=== PATIENT | female | born 1930 | race Caucasian/White ===

== ENCOUNTER 2017-09-25 19:29 | Emergency (ER) | payer MEDICARE, BC ==
--- NOTE | 2017-09-25 20:25 | ED ---
Head Injury - HPI Summary HPI Summary: 87F presents with head injury today. She states she fell onto her head. The falls are common for her. no chest pain or SOB. 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 She denies any weakness. She denies any thing different about this fall than her normal falls except she hit her head. She is following up with her primary about the falls. She is not on blood thinners. She denies any pain now. Says right hand was tingling but not anymore. no neck pain. no other injury. no dizziness. - History Of Current Complaint Chief Complaint: EDHeadInjury Stated Complaint: FALL Time Seen by Provider: 09/25/17 19:40 Pain Intensity: 0 - Allergies/Home Medications Allergies/Adverse Reactions: Allergies Allergy/AdvReac Type Severity Reaction Status Date / Time Benzyl Alcohol [From Tazorac] Allergy Unknown Verified 07/03/16 13:58 Reaction Details Fluorouracil Allergy Unknown Verified 07/03/16 13:58 Reaction Details Tazarotene [From Tazorac] Allergy Unknown Verified 07/03/16 13:58 Reaction Details clams Allergy Nausea And Uncoded 07/03/16 13:58 Vomiting PMH/Surg Hx/FS Hx/Imm Hx Endocrine/Hematology History: Reports: Hx Thyroid Disease - hypo Denies: Hx Anticoagulant Therapy Cardiovascular History: Reports: Hx Hypertension - CONTROL WITH MEDS GI History: Reports: Other GI Disorders - OCCASIONAL CONSTIPATION Musculoskeletal History: Reports: Hx Arthritis - BILATERAL LEGS, Hx Bursitis - HX OF IN SHOULDER YEARS AGO, Other Musculoskeletal History - HX OF NECK PROBLEMS , NO PROBLEMS NOW Sensory History: Reports: Hx Contacts or Glasses - GLASSES Denies: Hx Hearing Aid Opthamlomology History: Reports: Hx Contacts or Glasses - GLASSES Neurological History: Reports: Hx Nerve Disease - PERIPHERAL NEUROPATHY Psychiatric History: Reports: Hx Anxiety - CONTROL WITH MED, Hx Depression - CONTROL WITH MED - Cancer History Cancer Type, Location and Year: bilat biopsy breasts (benign) Hx Chemotherapy: No - Surgical History Surgery Procedure, Year, and Place: RIGHT CARPAL TUNNEL RELEASE. RIGHT TRIGGER FINGER RELEASE. REMOVAL BENIGN BILATERAL BREAST LUMPS. MULTIPLE SKIN CANCER EXCISIONS, Hx Anesthesia Reactions: No Infectious Disease History: No Infectious Disease History: Denies: Hx Clostridium Difficile, Hx Hepatitis, Hx Human Immunodeficiency Virus (HIV), Hx of Known/Suspected MRSA, Hx Shingles, Hx Tuberculosis, Hx Known/ Suspected VRE, Hx Known/Suspected VRSA, History Other Infectious Disease, Traveled Outside the [place] in Last 30 Days - Family History Known Family History: Positive: Hypertension - Social History Alcohol Use: None Substance Use Type: Reports: None Smoking Status (MU): Former Smoker Type: Cigarettes Amount Used/How Often: 1-2 PACKS PER WEEK Have You Smoked in the Last Year: No Review of Systems Negative: Fever Negative: Chest Pain Negative: Shortness Of Breath Positive: Headache All Other Systems Reviewed And Are Negative: Yes Physical Exam Triage Information Reviewed: Yes Vital Signs On Initial Exam: Initial Vitals Temp Pulse Resp BP Pulse Ox 97.4 F 83 16 143/72 98 09/25/17 19:35 09/25/17 19:35 09/25/17 19:35 09/25/17 19:35 09/25/17 19:35 Vital Signs Reviewed: Yes Appearance: Positive: Well-Appearing Skin: Positive: Warm, Dry Head/Face: Positive: Normal Head/Face Inspection Eyes: Positive: Normal, EOMI, RIZWANA, Conjunctiva Clear ENT: Positive: Normal ENT inspection, Pharynx normal, TMs normal Neck: Positive: Other: - nontender neck Respiratory/Lung Sounds: Positive: Clear to Auscultation, Breath Sounds Present Cardiovascular: Positive: Normal, RRR Abdomen Description: Positive: Nontender, Soft Bowel Sounds: Positive: Present Musculoskeletal: Positive: Strength/ROM Intact Neurological: Positive: Sensory/Motor Intact, Alert, Oriented to Person Place, Time, CN Intact II-III Psychiatric: Positive: Normal - Thania Coma Scale Coma Scale Total: 15 Diagnostics - Vital Signs Vital Signs Temp Pulse Resp BP Pulse Ox 09/25/17 19:59 86 19 99 09/25/17 19:42 83 16 99 09/25/17 19:35 97.4 F 83 16 143/72 98 - Laboratory Lab Statement: Any lab studies that have been ordered have been reviewed, and results considered in the medical decision making process. - CT brain CT Interpretation: No Acute Changes - IMPRESSION: 1. No evidence for traumatic brain injury or acute intracranial process. 2. Involutional change and stigmata of chronic small vessel ischemic disease. 3. Stigmata of chronic paranasal sinusitis. CT Interpretation Completed By: Radiologist Head Injury Course/Dx Course Of Treatment: 87F presents with head injury today. She states she fell onto her head. The falls are common for her. no chest pain or SOB. 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 She denies any weakness. She denies any thing different about this fall than her normal falls except she hit her head. She is following up with her primary about the falls. She is not on blood thinners. She denies any pain now. Says right hand was tingling but not anymore. no neck pain. no other injury. no dizziness. normal neuro exam. offered to do labs and ekg but patient and son refused as just wants CT. CT normal. ambulates with normal gait. told to follow up with primary. patient unable to give us a urine. patient understand and agrees with plan. - Diagnoses Differential Diagnosis/HQI/PQRI: Concussion Without LOC, Contusion, Intracranial Bleed Provider Diagnoses: Head injury Discharge - Discharge Plan Condition: Good Disposition: HOME Patient Education Materials: Head Injury (ED) Referrals: Mile [Primary Care Provider] - Additional Instructions: Place ice on area as needed Take Tylenol for headache every 6 hours Follow up with primary within 5 days Return to ED if develop vomiting, severe headache, change in behavior, or any new or worsening symptoms
--- NOTE | 2017-09-25 20:47 | RAD ---
Indication: Fall. Comparison: November 04, 2016 CT. Technique: Noncontrast CT vertex of skull through foramen magnum. Report: Mild to moderate prominence of the cerebral sulci and cerebellar fissures reflecting atrophy. Proportional mild prominence of the ventricles. Patent basal cisterns. Negative for gomez matter white matter obscuration, intra or extra-axial hemorrhage, or mass effect. Decreased density in the periventricular and subcortical white matter while non-specific is most likely due to chronic microangiopathy. Negative for calvarial or skull base fracture. Chronic complete opacification of the visualized portion of the LEFT maxillary sinus. Indolent thickening of the maxillary sinus palacio. No suspicious abnormality at the orbits. IMPRESSION: 1. No evidence for traumatic brain injury or acute intracranial process. 2. Involutional change and stigmata of chronic small vessel ischemic disease. 3. Stigmata of chronic paranasal sinusitis.
[2017-09-25 21:49] VITALS: BP 135/75
== END 2017-09-25 21:48 | disposition home or self-care (01) ==
LOC: ED 19:29
DX: S09.90XA Unspecified injury of head, initial encounter (principal); W19.XXXA Unspecified fall, initial encounter; Y93.9 Activity, unspecified; Y92.9 Unspecified place or not applicable; Y99.9 Unspecified external cause status; Z87.891 Personal history of nicotine dependence
CPT/HCPCS: 70450; 99283

== ENCOUNTER 2017-12-08 16:58 | Inpatient (IN) | payer MEDICARE, BC ==
[2017-12-08] MEDS ORDERED: NS 0.9% 1000 ML* 1,000 ML IV ONE (19:38)
--- NOTE | 2017-12-08 20:14 | RAD ---
INDICATION: Dizziness COMPARISON: December 06, 2016 TECHNIQUE: An AP portable view obtained at 2002 hours is submitted. FINDINGS: Bones/Soft Tissues: There are no acute bony findings. Cardiomediastinal: The cardiomediastinal silhouette is normal. Lungs: There are no infiltrates. Pleura: There are no pleural effusions. Other: None IMPRESSION: NO ACTIVE DISEASE.
--- NOTE | 2017-12-08 20:57 | RAD ---
INDICATION: Dizziness COMPARISON: CT brain September 25, 2017 TECHNIQUE: Noncontrast axial source images were acquired from the skull base to the vertex. FINDINGS: Ventricles/sulci: There is cortical atrophy with compensatory dilatation of the CSF spaces. Brain parenchyma: There is periventricular and subcortical white matter change compatible with chronic ischemia. Intracranial hemorrhage:None. Extra-axial spaces: There are no abnormal extra axial fluid collections or evidence of extra-axial mass. Calvarium: There is no calvarial fracture or other calvarial abnormality. Scalp: There is no evidence of scalp or extracalvarial soft tissue abnormality. Paranasal sinuses/mastoid: There is opacification of visualized portions of both maxillary antra. Other: None. IMPRESSION: CORTICAL ATROPHY WITH CHRONIC MICROVASCULAR ISCHEMIC CHANGES. NO ACUTE FINDINGS. SINUSITIS.
[2017-12-08 21:04] LABS: ABS Basophils 0 10^3/ul (0-0.2); ABS Eosinophils 0.1 10^3/ul (0-0.6); ABS Lymphocytes 2.6 10^3/ul (1.0-4.8); ABS Neutrophils 5.5 10^3/ul (1.5-7.7); ABS Nucleated RBC 0 10^3/ul; Eosinophil % 1.5 % (0-6); Hematocrit 39 % (35-47); Hemoglobin 13.1 g/dl (12.0-16.0); Lymphocyte % 28.5 % (25-47); Mean Corpuscular HGB Conc 34 g/dl (31-36); Mean Corpuscular Hemoglobin 31 pg (27-31); Mean Corpuscular Volume 92 fL (80-97); Mean Platelet Volume 8 um3 (7.4-10.4); Nucleated Red Blood Cells % 0.1; Platelet Count 357 10^3/ul (150-450); Red Blood Count 4.23 10^6/ul (4.0-5.4); Red Cell Distribution Width 14 % (10.5-15); White Blood Count 9.3 10^3/ul (3.5-10.8)
[2017-12-08 21:07] LABS: EGFR Non-African American 56.8 (>60)
[2017-12-08 21:30] LABS: INR 0.86 (0.77-1.02)
[2017-12-08 22:58] LABS: Urine Appearance Clear; Urine Blood Negative (Negative); Urine Color Straw; Urine Ketones Negative (Negative); Urine Protein Negative (Negative); Urine Specific Gravity 1.004 (1.010-1.030); Urine Urobilinogen Negative (Negative)
[2017-12-08] MEDS ORDERED: Al Hydrox/Mg Hydrox/Simet LIQ* 30 ML UDC PO PRN (23:00)
[2017-12-08] MEDS ORDERED: Senna TAB PO PRN (23:00)
[2017-12-08] MEDS ORDERED: Ondansetron INJ* 2 MG/ML VIAL IV PRN (23:00)
[2017-12-08] MEDS ORDERED: Acetaminophen TAB* 325 MG PO PRN (23:00)
[2017-12-08] MEDS ORDERED: Docusate CAP* 100 MG PO PRN (23:00)
[2017-12-08] MEDS ORDERED: Magnesium Hydroxide LIQ* 30 ML UDC PO PRN (23:08)
[2017-12-08] MEDS ORDERED: Aspirin TAB* 325 MG PO ONE (23:11)
--- NOTE | 2017-12-09 01:16 | HP ---
CC: Elissa Fuentes MD * HISTORY AND PHYSICAL: DATE OF ADMISSION: 12/08/17 TIME OF EVALUATION: 2300. PRIMARY CARE PHYSICIAN: Elissa Fuentes MD CHIEF COMPLAINT: Altered mental status. HISTORY OF PRESENT ILLNESS: This is an 87-year-old female with a past medical history of mild cognitive impairment, who presented from [facility] for worsening mental status changes. The family who is at the bedside with son, [id number] and granddaughter states that she normally is able to get up and get ready and dressed in the morning. This morning, the staff had to wake her up and get her up and help her to get ready. She was having difficulty with her speech, could not put sentences together. She could not recognize any lunch, could not remember anything. She was ambulating with her walker without any issues. No weakness, no falls. Denying any pain. They did speak with Dr. Fuentes, who ordered an UA that was unremarkable and then after that will be sent to the emergency room for further evaluation. He states that throughout the day she has been the same regarding her mental status with persistent confusion and difficulty with her speech. She has periods of lucidity, but remains quite altered, much different than her baseline, which is meaningful interactions, alert and oriented normally x2. She writes poetry. She is able to converse with no difficulties with her speech normally. They state that she has been able to read without any issues, but cannot point out any pictures of what per se an elephant. The patient who goes by Nydia is talking about her mother in the room. She is stuttering, having unable to carry out meaningful conversation with me. She is able to answer questions, but gets distracted easily and asking questions that do not make any sense. Thus, review of systems are difficult to obtain. In the emergency room, the patient had labs, imaging and was referred to the hospitalist for further evaluation. PAST MEDICAL HISTORY: 1. Macular degeneration. 2. Cervical spondylosis with myelopathy. 3. Peripheral venous insufficiency. 4. Hyperlipidemia. 5. GERD. 6. Contracture of palmar fascia. 7. Idiopathic peripheral neuropathy. 8. Anxiety. 9. Hypertension. 10. Hypothyroidism. 11. Arthritis. 12. Mild cognitive impairment. MEDICATIONS: 1. Milk of magnesia as needed for constipation. 2. Dulcolax suppository as needed for constipation. 3. Vitamin D 800 units daily. 4. Vitamin B complex 1 cap daily. 5. Tylenol 650 every 6 hours as needed for pain. 6. Verapamil SR 240 mg p.o. daily. 7. Ramipril 5 mg p.o. daily. 8. Citrucel 500 mg p.o. daily. 9. Lansoprazole 30 mg p.o. daily. 10. MiraLAX 16 g p.o. daily. 11. PreserVision AREDS 1 cap p.o. b.i.d. 12. Levothyroxine 100 mcg Saturday, Saturday, , Saturday, Saturday. 13. Levothyroxine 112 mcg Saturday and Saturday. 14. Senna 1 tab p.o. daily. 15. Debrox as needed for impacted cerumen. 16. Lexapro 20 mg p.o. daily. ALLERGIES: BENZO, ALCOHOL, FLUOROURACIL, TAZAROTENE, and CLAMS. FAMILY HISTORY: No history of stroke or TIA in the past. SOCIAL HISTORY: The patient lives at [facility]. She ambulates only with a walker at baseline. She is able to meaningful interaction. She recognizes staff and family members. She quit smoking back in 1963, was a light smoker for 20 years. She drinks wine occasionally. As mentioned, healthcare proxies are her sons, Arthur and Max Lucio. MOLST form discussed with the son, who is at the bedside with unchanged DNR/DNI with limited medical intervention. REVIEW OF SYSTEMS: Limited due to the patient's altered mental status. PHYSICAL EXAMINATION GENERAL: No acute distress, pleasant with her family at the bedside. VITAL SIGNS: Temp 99.2, pulse rate 83, respiratory rate 19, oxygen saturation 97 % on room air, blood pressure 151/86. HEENT: Head: Normocephalic. Pupils equal and reactive, anicteric. Oropharynx : Mucous membranes moist. NECK: Supple. No lymphadenopathy. RESPIRATORY: Diminished breath sounds. No wheezing, rhonchi, or rales. CARDIAC: Regular rate and rhythm with harsh systolic murmur heard, most prominent at the right sternal base. ABDOMEN: Soft, nontender, nondistended. EXTREMITIES: No clubbing, cyanosis, or edema. +1 DPs. NEUROLOGIC: The patient is alert and oriented x1. Oriented to herself only. No gross focal neurologic deficits. Cranial nerves II through XII intact. Upper and lower muscle strength equal and symmetric. Negative pronator drift. The patient's speech noted to be expressive aphasia with dysarthria and stuttering. DIAGNOSTIC STUDIES/LAB DATA: White count 9.3, hemoglobin 13.1, hematocrit 39, platelets 357. INR 0.86. Sodium 133, potassium 4.1, chloride 99, BUN 20, creatinine 0.93. Troponin is 0. Urine is unremarkable. Flu is negative. RADIOGRAPHIC DATA: Chest x-ray, no active disease. EKG shows normal sinus rhythm with right bundle branch block. No significant changes. Head CT, cortical atrophy with chronic microvascular ischemic changes. No acute findings or sinusitis. ASSESSMENT AND PLAN: This is an 87-year-old female with a past medical history of mild cognitive impairment and hypertension, who presents to the emergency room with altered mental status. 1. Altered mental status. The patient also noted to have an expressive aphasia, stuttering and significant confusion. She is pleasantly confused. Ddx: concern for intracranial process. Her initial workup is unremarkable. No signs of infectious etiology other than a low-grade temp. Plan: We will admit her to telemetry. We will order an MRI. Follow up with Dr. Fuentes and will call Neurology in the morning. We will check a lipid panel in the morning and check a TSH as well. We will also order a bedside nursing swallow eval prior to allowing her to eat and we will order a speech therapy consult as well. We will give her full aspirin dose in the emergency room and continue on a baby aspirin in the morning. 2. Chronic medical problems: We will resume her home medications as prescribed. 3. FEN. As mentioned, we will order a bedside nursing swallow eval first and then start her on a heart-healthy diet. 3. DVT prophylaxis. The patient scores high risk. Placed her on heparin subcu t.i.d. 3. Code status. The patient is a DNR/DNI. MOLST form is unchanged and here with her in her chart, confirmed with her son who is a healthcare proxy. PATIENT TIME: Greater than 60 minutes was spent doing the history and physical , more than half time spent in direct patient contact. [id number]/[facility] #: [id number] [facility] HEALTH SYSTEMMarge
[2017-12-09] MEDS: Omeprazole CAP* 20 MG PO SCH (05:09)
[2017-12-09] MEDS: Heparin VIAL(*) 5000 UNITS/ML VIAL (FIVE THOUSAND) SUBCUT SCH ×3 (05:10→21:01)
[2017-12-09] MEDS ORDERED: Levothyroxine TAB* 100 MCG TAB PO SCH (06:00)
[2017-12-09] MEDS: Verapamil SR TAB* 240 MG PO SCH (09:10)
[2017-12-09] MEDS: Ramipril CAP* 5 MG PO SCH (09:10)
[2017-12-09] MEDS: Aspirin EC Low Dose* 81 MG TAB.EC PO SCH (09:11)
[2017-12-09] MEDS: Polyethylene Glycol 3350* 17 GM PACKET PO SCH (09:11)
[2017-12-09] MEDS: Senna TAB PO SCH (09:15)
--- NOTE | 2017-12-09 11:38 | RAD ---
HISTORY: Rule out stroke COMPARISONS: Head CT dated December 08, 2017 TECHNIQUE: The following sequences were obtained of the head: Sagittal T1-weighted images, axial T2-weighted images, axial FLAIR images, axial susceptibility weighted images, axial T1-weighted images. Additionally, axial diffusion-weighted images were obtained with calculated apparent diffusion coefficients. FINDINGS: HEMORRHAGE/INFARCT: There is a small focus of restricted diffusion within the left thalamus consistent with subacute nonhemorrhagic infarct. Elsewhere, there is no hemorrhage or acute infarct. MASSES/SHIFT: There is no mass or shift. EXTRA-AXIAL SPACES/MENINGES: There are no extra-axial fluid collections. SULCI AND VENTRICLES: The sulci and ventricles are normal in size and position for the patient's stated age. CEREBRUM: There is elevated T2/FLAIR signal in the periventricular and subcortical white matter. There is elevated T2/flair signal corresponding to the restricted diffusion within the left thalamus. BRAINSTEM: There are no focal parenchymal abnormalities. CEREBELLUM: There are no focal parenchymal abnormalities. The cerebellar tonsils are normal in size and position. SELLA: The sella is normal. PINEAL: The pineal region is clear. CP ANGLE/TEMPORAL BONES: The labyrinthine structures are grossly normal. VESSELS: Normal flow-voids are noted within the visualized vertebral vasculature. DIFFUSION ABNORMALITIES: As noted above, there is restricted diffusion within the left thalamus. PARANASAL SINUSES/MASTOIDS: There is mucosal thickening of the maxillary sinuses bilaterally. There is an air-fluid level within the right maxillary sinus. ORBITS: The orbits are unremarkable. BONES AND SOFT TISSUE: No bone or soft tissue abnormalities are noted. OTHER: None IMPRESSION: 1. RESTRICTED DIFFUSION WITHIN THE LEFT THALAMUS CONSISTENT WITH SUBACUTE NONHEMORRHAGIC INFARCT. 2. ELEVATED T2/FLAIR SIGNAL IN THE PERIVENTRICULAR AND SUBCORTICAL WHITE MATTER, NONSPECIFIC BUT SUGGESTIVE OF CHRONIC SMALL VESSEL ISCHEMIA. 3. MODERATE SINUS MUCOSAL INFLAMMATORY DISEASE, WITH AN AIR-FLUID LEVEL IN THE RIGHT MAXILLARY SINUS. IN THE CORRECT CLINICAL SETTING, THIS MAY REPRESENT ACUTE SINUSITIS
--- NOTE | 2017-12-09 13:09 | RAD ---
INDICATION: Cerebrovascular accident. COMPARISON: Comparison is made with a prior MRI of the brain from December 09, 2017. TECHNIQUE: Multiple grayscale, color and Doppler tracings of the common, internal and external carotid and vertebral arteries were obtained. Stenosis estimations reflect velocity criteria that it been correlated to angiographic stenosis calculations based on the distal internal carotid diameter. RIGHT CAROTID: There is mild hyperechoic plaque within the right carotid bulb and proximal internal carotid artery. The peak systolic velocity in the proximal right internal carotid artery is 36 cm/s and the maximum end-diastolic velocity is 9 cm/s. The peak systolic velocity in the distal right common carotid artery is 62 cm/s and the maximum end-diastolic velocity is 15 cm/s. The internal to common carotid artery ratio is 0.6. This would be consistent with a less than 50% stenosis. LEFT CAROTID: There is mild hyperechoic plaque within the left carotid bulb and proximal internal carotid artery. The peak systolic velocity in the proximal left internal carotid artery is 28 cm/s and the maximum end-diastolic velocity is 11 cm/s. The peak systolic velocity in the distal left common carotid artery is 63 cm/s and the maximum end-diastolic velocity is 17 cm/s. The internal to common carotid artery ratio is 0.5. This would be consistent with a less than 50% stenosis. VERTEBRALS: There is antegrade flow in both vertebral arteries. IMPRESSION: THERE IS MILD PLAQUE PRESENT WITHIN THE CAROTID BULBS AND PROXIMAL INTERNAL CAROTID ARTERIES. NO HEMODYNAMICALLY SIGNIFICANT STENOSIS IS SEEN. CPT II Codes: 3100F
--- NOTE | 2017-12-09 16:11 | ECHO ---
Patient: EDIN RABAGO [facility] Rec#: [id number] : 1930 Date: 12/09/2017 Age: 87y Height: 154.94 cm / 61.0 in Weight: 54.43 kg / 120.0 lbs Sex: F BSA: 1.52 Room#: 436 Admit Date#: 12/08/2017 Type: Inpatient Referring: Emily Muñiz Reading: Tray Akins MD [place] Polisher: Preeti BernardoRDCS,RDMS Transthoracic Echocardiogram Indication: CVA, Murmur BP: 146/78 HR: 77 Rhythm: NSR Findings History: PVD, HLD, HTN, GERD Technical Comments: The study quality is good. Left Ventricle: The left ventricular chamber size is normal. Mild concentric left ventricular hypertrophy is observed. Global left ventricular wall motion and contractility are within normal limits. There is normal left ventricular systolic function. The estimated ejection fraction is 55-60%. Abnormal left ventricular diastolic filling is observed, consistent with impaired relaxation. Left Atrium: The left atrium is mild to moderately dilated. Right Ventricle: The right ventricular chamber size and systolic function are within normal limits. The right ventricle wall thickness is mildly increased. Right Atrium: The right atrial cavity size is normal. Aortic Valve: The aortic valve is trileaflet. The aortic valve leaflets are mildly thickened. There is aortic annular calcification. There is no evidence of aortic regurgitation. There is mild to moderate aortic stenosis. The mean gradient of the aortic valve is 11 mmHg. The highest aortic valve velocity was obtained with the standard probe from the A5C view. Mitral Valve: There is mitral annular calcification. There is no evidence of mitral regurgitation. There is mild mitral stenosis. Tricuspid Valve: The tricuspid valve leaflets are normal. There is trace tricuspid regurgitation. No pulmonary hypertension is noted. Pulmonic Valve: The pulmonic valve structure is not well visualized. There is no evidence of pulmonic regurgitation. Pericardium: There is no significant pericardial effusion. Aorta: The aortic root appears normal. There is no dilatation of the aortic arch. Pulmonary Artery: The main pulmonary artery is not well visualized. Venous: The inferior vena cava appears normal in size. There is a greater than 50% respiratory change in the inferior vena cava dimension. Summary: There was not any prior study for comparison. Conclusions Global left ventricular wall motion and contractility are within normal limits. There is normal left ventricular systolic function. The estimated ejection fraction is 55-60%. Mild concentric left ventricular hypertrophy is observed. There is mild to moderate aortic stenosis. The mean gradient of the aortic valve is 11 mmHg. There is no evidence of mitral regurgitation. There is trace tricuspid regurgitation. No pulmonary hypertension is noted. There is no significant pericardial effusion. Measurements Name Value Normal Range RVIDd (AP) 2D 1.9 cm (0.9 - 2.6) RVDdMajor (2D) 3.6 cm (2.2 - 4.4) RAd ISD 4CH 4.4 cm (3.4 - 4.9) RA (A4C)W 4.2 cm (2.9 - 4.6) IVSd (2D) 1.1 cm (0.6 - 1) LVPWd (2D) 1.1 cm (0.6 - 1) LVIDd (2D) 3.5 cm (3.6 - 5.4) LVIDs (2D) 2.3 cm - LV FS (2D) 36 % (25 - 45) Aortic Annulus 1.9 cm (1.4 - 2.6) Ao root diameter (2D) 3.2 cm (2.1 - 3.5) Ascending Ao 2.6 cm (2.1 - 3.4) Aortic arch 2.7 cm (1.8 - 3.4) LA dimension (AP) 2D 3.8 cm (2.3 - 3.8) LAd ISD 4CH 5.4 cm (2.9 - 5.3) LA ISD 4CH W 4.6 cm (2.5 - 4.5) Name Value Normal Range LA ESV SP 4CH (A/L) 70.71 ml - LA ESV SP 2CH (A/L) 56.61 ml - LA ESV BP (A/L) 66.12 ml - LA ESV BP (A/L) index 43.5 ml/m2 - LA ESV SP 4CH (MOD) 65.44 ml - LA ESV SP 2CH (MOD) 53.98 ml - LV EDV SP 4CH (MOD) 65.21 ml - LV ESV SP 4CH (MOD) 20.91 ml - EF SP 4CH (MOD) 67.94 % - LV EDV SP 2CH (MOD) 38.42 ml - LV ESV SP 2CH (MOD) 14.92 ml - EF SP 2CH (MOD) 61.17 % - LV EDV BP 49.12 ml - LV ESV BP 17.89 ml - BP EF (MOD) 64 % - Name Value Normal Range MV E-wave Vmax 0.5 m/sec - MV deceleration time 138 msec - MV A-wave Vmax 1 m/sec - MV E:A ratio 0.5 ratio - LV septal e' Vmax 0.03 m/sec - LV lateral e' Vmax 0.08 m/sec - LV E:e' septal ratio 17 ratio - LV E:e' lateral ratio 6.3 ratio - Name Value Normal Range AV Vmax 2.3 m/sec - AV VTI 39 cm - AV peak gradient 21 mmHg - AV mean gradient 11 mmHg - LVOT diameter 2 cm - LVOT Vmax 1 m/sec - LVOT VTI 19 cm - LVOT peak gradient 4 mmHg - LVOT mean gradient 2.2 mmHg - DOI (VTI) 0.5 ratio - AMANDA (continuity Vmax) 1.4 cm2 - AMANDA (continuity VTI) 1.5 cm2 - Name Value Normal Range MV Vmax 1.2 m/sec - MV VTI 22 cm - MV peak gradient 6 mmHg - MV mean gradient 2.1 mmHg - MV PHT 68 msec - MVA (PHT) 3.2 cm2 - MVA (continuity VTI) 2.6 cm2 - Name Value Normal Range TR Vmax 1.8 m/sec - TR peak gradient 13 mmHg - RAP 3 mmHg - RVSP 16 mmHg - IVC diameter 1.6 cm - Name Value Normal Range PV Vmax 0.7 m/sec - PV peak gradient 2 mmHg -
[2017-12-09] MEDS ORDERED: Iodixanol* (CONTRAST) 320 MG/ML 100 ML SDV IV ONE (18:45)
--- NOTE | 2017-12-09 19:02 | RAD ---
INDICATION: Cerebrovascular accident. COMPARISON: Comparison is made with a prior MRI of the brain and carotid duplex ultrasound from December 09, 2017. TECHNIQUE: A CT angiogram of the head and neck was performed following intravenous injection of 100 ml of Visipaque 320 nonionic contrast. Contiguous axial sections were obtained from the thoracic inlet through the skull vertex. Images were reconstructed in the coronal and sagittal planes and in a 3-D volume rendered format. The distal cervical internal carotid artery diameter is used as the denominator for stenosis measurement. FINDINGS: RIGHT CAROTID: Exam of the carotid arteries is limited due to motion artifact which is most prominent through the region of the carotid bifurcations. There appears to be mild to moderate calcific plaque. No gross stenosis is seen. LEFT CAROTID: Exam of the carotid arteries is limited due to motion artifact which is most prominent through the region of the carotid bifurcations. There appears to be mild to moderate calcific plaque. No gross stenosis is seen. VERTEBRALS: There is a dominant left vertebral artery. There is no evidence for high-grade stenosis. CTA BRAIN: The internal carotid, anterior and middle cerebral arteries appear patent without evidence for high-grade stenosis or occlusion. The vertebral, basilar and posterior cerebral arteries appear patent without evidence for high-grade stenosis or occlusion. The left posterior cerebral artery arises from the posterior communicating artery consistent with normal variation. No gross focal perfusion abnormalities are seen. No aneurysm or vascular malformation is seen. NECK: No significant enlarged lymph nodes are seen within the neck. The thyroid, parotid and submandibular glands appear to be within normal limits. The lung apices appear clear. There is near complete opacification of both maxillary sinuses. The ethmoid frontal and sphenoid sinuses appear clear. The mastoid air cells appear clear. IMPRESSION: 1. LIMITED STUDY DUE TO MOTION ARTIFACT NO GROSS EVIDENCE FOR CAROTID STENOSIS. 2. NO EVIDENCE FOR LARGE VESSEL INTRACRANIAL THROMBUS. 3. OPACIFICATION OF BOTH MAXILLARY SINUSES SUGGESTING THE POSSIBILITY OF SINUSITIS. CPT II Codes: 3100F
[2017-12-09] MEDS: CMCS Escitalopram (NF) 10 MG TAB PO SCH (19:46)
[2017-12-09] MEDS: Atorvastatin* 20 MG TAB PO SCH (19:46)
[2017-12-09] MEDS ORDERED: LORazepam TAB(*) 0.5 MG PO PRN ×2 (21:35→22:35)
[2017-12-09] MEDS ORDERED: LORazepam TAB(*) 0.5 MG PO ONE (21:35)
--- NOTE | 2017-12-09 22:28 | ED ---
Darian Hankins Thomas, scribed for Kenny Power on 12/08/17 at 1932 . Altered Mental Status - HPI Summary HPI Summary: The patient is an 87 year old female accompanied by her son and presenting to the emergency department with altered mental status that began this morning. At her baseline, she is normally alert and oriented. The patient denies edema and fever. At her baseline, she gets around with a walker. She lives at [facility]. LEVEL 5 CAVEAT: HPI limited by AMS - History Of Current Complaint Chief Complaint: EDAltMentalStatus Stated Complaint: POSSIBLE STROKE Time Seen by Provider: 12/08/17 19:14 Hx Obtained From: Family/Agent - son in the room Hx From Patient Unobtainable Due To: Altered Mental Status Timing: Lasting Hours - onset this morning Character: Confusion Aggravating Factor(s): Nothing Alleviating Factor(s): Nothing Associated Signs And Symptoms: Negative: Fever Related History: Other: - Negative for UTI - Allergies/Home Medications Allergies/Adverse Reactions: Allergies Allergy/AdvReac Type Severity Reaction Status Date / Time Benzyl Alcohol [From Tazorac] Allergy Unknown Verified 12/08/17 17:03 Reaction Details Fluorouracil Allergy Unknown Verified 12/08/17 17:03 Reaction Details Tazarotene [From Tazorac] Allergy Unknown Verified 12/08/17 17:03 Reaction Details clams Allergy Nausea And Uncoded 12/08/17 17:03 Vomiting PMH/Surg Hx/FS Hx/Imm Hx Endocrine/Hematology History: Reports: Hx Thyroid Disease - hypo Denies: Hx Anticoagulant Therapy Cardiovascular History: Reports: Hx Hypertension - CONTROL WITH MEDS GI History: Reports: Other GI Disorders - OCCASIONAL CONSTIPATION Musculoskeletal History: Reports: Hx Arthritis - BILATERAL LEGS, Hx Bursitis - HX OF IN SHOULDER YEARS AGO, Other Musculoskeletal History - HX OF NECK PROBLEMS , NO PROBLEMS NOW Sensory History: Reports: Hx Contacts or Glasses - GLASSES Denies: Hx Hearing Aid Opthamlomology History: Reports: Hx Contacts or Glasses - GLASSES Neurological History: Reports: Hx Nerve Disease - PERIPHERAL NEUROPATHY Psychiatric History: Reports: Hx Anxiety - CONTROL WITH MED, Hx Depression - CONTROL WITH MED - Cancer History Cancer Type, Location and Year: bilat biopsy breasts (benign) Hx Chemotherapy: No - Surgical History Surgery Procedure, Year, and Place: RIGHT CARPAL TUNNEL RELEASE. RIGHT TRIGGER FINGER RELEASE. REMOVAL BENIGN BILATERAL BREAST LUMPS. MULTIPLE SKIN CANCER EXCISIONS, Hx Anesthesia Reactions: No Infectious Disease History: No Infectious Disease History: Denies: Hx Clostridium Difficile, Hx Hepatitis, Hx Human Immunodeficiency Virus (HIV), Hx of Known/Suspected MRSA, Hx Shingles, Hx Tuberculosis, Hx Known/ Suspected VRE, Hx Known/Suspected VRSA, History Other Infectious Disease, Traveled Outside the [place] in Last 30 Days - Family History Known Family History: Positive: Hypertension - Social History Alcohol Use: None Substance Use Type: Reports: None Smoking Status (MU): Former Smoker Type: Cigarettes Amount Used/How Often: 1-2 PACKS PER WEEK Have You Smoked in the Last Year: No Review of Systems - ROS Summary Review of Systems Summary: LEVEL 5 CAVEAT: ROS limited by AMS Negative: Fever Negative: Edema Neurological: Other - AMS All Other Systems Reviewed And Are Negative: No Physical Exam - Summary Physical Exam Summary: Appearance: Well appearing, no pain distress Skin: warm, dry, reflects adequate perfusion Head/face: normal Eyes: EOMI, RIZWANA ENT: Dry mucous membranes. Neck: supple, non-tender Respiratory: CTA, breath sounds present Cardiovascular: RRR, pulses symmetrical Abdomen: non-tender, soft Bowel: present Musculoskeletal: normal, strength/ROM intact Neuro: sensory motor intact, alert but not oriented. She is confused. NIH =2. LEVEL 5 CAVEAT: PHYSICAL EXAM limited by AMS Triage Information Reviewed: Yes Vital Signs On Initial Exam: Initial Vitals Temp Pulse Resp BP Pulse Ox 99.2 F 79 16 141/87 100 12/08/17 17:04 12/08/17 17:04 12/08/17 17:04 12/08/17 17:04 12/08/17 17:04 Vital Signs Reviewed: Yes Diagnostics - Vital Signs Vital Signs Temp Pulse Resp BP Pulse Ox 12/08/17 18:18 84 19 162/97 99 12/08/17 18:17 83 24 98 12/08/17 17:04 99.2 F 79 16 141/87 100 - Laboratory Lab Results: Lab Results 12/08/17 12/08/17 12/08/17 Range/Units 20:35 20:35 20:35 WBC (3.5-10.8) 10^3/ul RBC (4.0-5.4) 10^6/ul Hgb (12.0-16.0) g/dl Hct (35-47) % MCV (80-97) fL MCH (27-31) pg MCHC (31-36) g/dl RDW (10.5-15) % Plt Count (150-450) 10^3/ul MPV (7.4-10.4) um3 Neut % (Auto) (38-83) % Lymph % (Auto) (25-47) % [place] % (Auto) (1-9) % Eos % (Auto) (0-6) % Baso % (Auto) (0-2) % Absolute Neuts (auto) (1.5-7.7) 10^3/ul Absolute Lymphs (auto) (1.0-4.8) 10^3/ul Absolute Monos (auto) (0-0.8) 10^3/ul Absolute Eos (auto) (0-0.6) 10^3/ul Absolute Basos (auto) (0-0.2) 10^3/ul Absolute Nucleated RBC 10^3/ul Nucleated RBC % INR (Anticoag Therapy) 0.86 (0.77-1.02) APTT 34.4 (26.0-36.3) seconds Sodium 133 (133-145) mmol/L Potassium 4.1 (3.5-5.0) mmol/L Chloride 99 L (101-111) mmol/L Carbon Dioxide 27 (22-32) mmol/L Anion Gap 7 (2-11) mmol/L BUN 20 (6-24) mg/dL Creatinine 0.93 (0.51-0.95) mg/dL Est GFR ( Amer) 73.0 (>60) Est GFR (Non-Af Amer) 56.8 (>60) BUN/Creatinine Ratio 21.5 H (8-20) Glucose 101 H (70-100) mg/dL Lactic Acid (0.5-2.0) mmol/L Calcium 10.2 (8.6-10.3) mg/dL Magnesium 2.7 (1.9-2.7) mg/dL Total Bilirubin 0.50 (0.2-1.0) mg/dL AST 17 (13-39) U/L ALT 11 (7-52) U/L Alkaline Phosphatase 55 (34-104) U/L Total Creatine Kinase 73 (10-223) U/L Troponin I 0.00 (<0.04) ng/mL B-Natriuretic Peptide 71 ( - 100) pg/mL Total Protein 7.5 (6.4-8.9) g/dL Albumin 4.2 (3.2-5.2) g/dL Globulin 3.3 (2-4) g/dL Albumin/Globulin Ratio 1.3 (1-3) TSH 4.65 (0.34-5.60) mcIU/mL Urine Color Urine Appearance Urine pH (5-9) Ur Specific [place] (1.010-1.030) Urine Protein (Negative) Urine Ketones (Negative) Urine Blood (Negative) Urine Nitrate (Negative) Urine Bilirubin (Negative) Urine Urobilinogen (Negative) Ur Leukocyte Esterase (Negative) Urine Glucose (Negative) Influenza A (Rapid) (Negative) Influenza B (Rapid) (Negative) 12/08/17 12/08/17 12/08/17 Range/Units 20:35 20:35 21:05 WBC 9.3 (3.5-10.8) 10^3/ul RBC 4.23 (4.0-5.4) 10^6/ul Hgb 13.1 (12.0-16.0) g/dl Hct 39 (35-47) % MCV 92 (80-97) fL MCH 31 (27-31) pg MCHC 34 (31-36) g/dl RDW 14 (10.5-15) % Plt Count 357 (150-450) 10^3/ul MPV 8 (7.4-10.4) um3 Neut % (Auto) 59.0 (38-83) % Lymph % (Auto) 28.5 (25-47) % [place] % (Auto) 10.6 H (1-9) % Eos % (Auto) 1.5 (0-6) % Baso % (Auto) 0.4 (0-2) % Absolute Neuts (auto) 5.5 (1.5-7.7) 10^3/ul Absolute Lymphs (auto) 2.6 (1.0-4.8) 10^3/ul Absolute Monos (auto) 1.0 H (0-0.8) 10^3/ul Absolute Eos (auto) 0.1 (0-0.6) 10^3/ul Absolute Basos (auto) 0 (0-0.2) 10^3/ul Absolute Nucleated RBC 0 10^3/ul Nucleated RBC % 0.1 INR (Anticoag Therapy) (0.77-1.02) APTT (26.0-36.3) seconds Sodium (133-145) mmol/L Potassium (3.5-5.0) mmol/L Chloride (101-111) mmol/L Carbon Dioxide (22-32) mmol/L Anion Gap (2-11) mmol/L BUN (6-24) mg/dL Creatinine (0.51-0.95) mg/dL Est GFR ( Amer) (>60) Est GFR (Non-Af Amer) (>60) BUN/Creatinine Ratio (8-20) Glucose (70-100) mg/dL Lactic Acid 0.8 (0.5-2.0) mmol/L Calcium (8.6-10.3) mg/dL Magnesium (1.9-2.7) mg/dL Total Bilirubin (0.2-1.0) mg/dL AST (13-39) U/L ALT (7-52) U/L Alkaline Phosphatase (34-104) U/L Total Creatine Kinase (10-223) U/L Troponin I (<0.04) ng/mL B-Natriuretic Peptide ( - 100) pg/mL Total Protein (6.4-8.9) g/dL Albumin (3.2-5.2) g/dL Globulin (2-4) g/dL Albumin/Globulin Ratio (1-3) TSH (0.34-5.60) mcIU/mL Urine Color Urine Appearance Urine pH (5-9) Ur Specific [place] (1.010-1.030) Urine Protein (Negative) Urine Ketones (Negative) Urine Blood (Negative) Urine Nitrate (Negative) Urine Bilirubin (Negative) Urine Urobilinogen (Negative) Ur Leukocyte Esterase (Negative) Urine Glucose (Negative) Influenza A (Rapid) Negative (Negative) Influenza B (Rapid) Negative (Negative) 12/08/17 Range/Units 22:44 WBC (3.5-10.8) 10^3/ul RBC (4.0-5.4) 10^6/ul Hgb (12.0-16.0) g/dl Hct (35-47) % MCV (80-97) fL MCH (27-31) pg MCHC (31-36) g/dl RDW (10.5-15) % Plt Count (150-450) 10^3/ul MPV (7.4-10.4) um3 Neut % (Auto) (38-83) % Lymph % (Auto) (25-47) % [place] % (Auto) (1-9) % Eos % (Auto) (0-6) % Baso % (Auto) (0-2) % Absolute Neuts (auto) (1.5-7.7) 10^3/ul Absolute Lymphs (auto) (1.0-4.8) 10^3/ul Absolute Monos (auto) (0-0.8) 10^3/ul Absolute Eos (auto) (0-0.6) 10^3/ul Absolute Basos (auto) (0-0.2) 10^3/ul Absolute Nucleated RBC 10^3/ul Nucleated RBC % INR (Anticoag Therapy) (0.77-1.02) APTT (26.0-36.3) seconds Sodium (133-145) mmol/L Potassium (3.5-5.0) mmol/L Chloride (101-111) mmol/L Carbon Dioxide (22-32) mmol/L Anion Gap (2-11) mmol/L BUN (6-24) mg/dL Creatinine (0.51-0.95) mg/dL Est GFR ( Amer) (>60) Est GFR (Non-Af Amer) (>60) BUN/Creatinine Ratio (8-20) Glucose (70-100) mg/dL Lactic Acid (0.5-2.0) mmol/L Calcium (8.6-10.3) mg/dL Magnesium (1.9-2.7) mg/dL Total Bilirubin (0.2-1.0) mg/dL AST (13-39) U/L ALT (7-52) U/L Alkaline Phosphatase (34-104) U/L Total Creatine Kinase (10-223) U/L Troponin I (<0.04) ng/mL B-Natriuretic Peptide ( - 100) pg/mL Total Protein (6.4-8.9) g/dL Albumin (3.2-5.2) g/dL Globulin (2-4) g/dL Albumin/Globulin Ratio (1-3) TSH (0.34-5.60) mcIU/mL Urine Color Straw Urine Appearance Clear Urine pH 7.0 (5-9) Ur Specific [place] 1.004 L (1.010-1.030) Urine Protein Negative (Negative) Urine Ketones Negative (Negative) Urine Blood Negative (Negative) Urine Nitrate Negative (Negative) Urine Bilirubin Negative (Negative) Urine Urobilinogen Negative (Negative) Ur Leukocyte Esterase Negative (Negative) Urine Glucose Negative (Negative) Influenza A (Rapid) (Negative) Influenza B (Rapid) (Negative) Result Diagrams: 12/08/17 20:35 12/08/17 20:35 Lab Statement: Any lab studies that have been ordered have been reviewed, and results considered in the medical decision making process. - Radiology CXR Xray Interpretation: No Acute Changes - NO ACTIVE DISEASE. Dr. Power has reviewed this report. Radiology Interpretation Completed By: Radiologist - CT CT Brain CT Interpretation: No Acute Changes - CORTICAL ATROPHY WITH CHRONIC MICROVASCULAR ISCHEMIC CHANGES. NO ACUTE FINDINGS. SINUSITIS. Dr. Power has reviewed this report. CT Interpretation Completed By: Radiologist - EKG 19:44 Cardiac Rate: NL EKG Rhythm: Sinus Rhythm - at 82 BPM EKG Interpretation: RBBB. National Institutes Of Health - NIH Scale Level of Consciousness: Alert/Keenly Responsive Ask Patient the Month and His/Her Age: Neither Correct/Aphasic Ask Pt to Open/Close Eyes and [employer] Product [employer] Manager/Release Non-Paretic Hand: Both Correctly Best Gaze (Only Horizontal Eye Movement): Normal Visual Field Testing: No Visual Loss Facial Paresis-Pt to Smile & Close Eyes or Grimace Symmetry: Normal/Symmetrical Motor Function - Right Arm: No Drift-Holds 10 Seconds Motor Function - Left Arm: No Drift-Holds 10 Seconds Motor Function - Right Leg: No Drift-Holds 10 Seconds Motor Function - Left Leg: No Drift-Holds 10 Seconds Limb Ataxia-Must be out of Proportion to Weakness Present: Absent Sensory (Use Pinprick to Test Arms/Legs/Trunk/Face): Normal Best Language (Describe Picture, Name Items): No Aphasia Dysarthria (Read Several Words): Normal Extinction and Inattention: No Abnormality Total Score: 2 Re-Evaluation - Re-Evaluation First Eval Re-Evaluation Time: 22:25 Change: Unchanged Comment: She is still confused. Altered Mental Statu Course/Dx - Course Assessment/Plan: The patient is an 87 year old female accompanied by her son and presenting to the emergency department with altered mental status that began this morning. In the ED course the patient was given IV fluids. Bloodwork and urinalysis were obtained. EKG shows sinus rhythm with RBBB. CT Brain shows CORTICAL ATROPHY WITH CHRONIC MICROVASCULAR ISCHEMIC CHANGES. NO ACUTE FINDINGS. SINUSITIS. CXR shows NO ACTIVE DISEASE. At re-evaluation at 22:25, the patient is still confused. The patient will be admitted by the hospitalists with diagnosis of AMS, rule out TIA. - Diagnoses Differential Diagnosis/HQI/PQRI: CVA, Intracranial Bleed, Metabolic Disorder, Sepsis, TIA, Other - ams Discharge Diagnoses: AMS rule out TIA - Provider Notifications Discussed Care Of Patient With: Emily Muñiz Time Discussed With Above Provider: 22:25 Instructed by Provider To: Admit As Inpatient Discharge - Discharge Plan Condition: Stable Disposition: ADMITTED TO [facility] Discharge Disposition Comment: By Dr. Muñiz The documentation as recorded by the Darian felix Thomas accurately reflects the service I personally performed and the decisions made by , Kenny Power.
--- NOTE | 2017-12-09 23:40 | CONS ---
NEUROLOGY CONSULTATION: DATE OF CONSULT: 12/09/17 LOCATION: Inpatient. REQUESTING PHYSICIAN: Dr. Muñiz. REASON FOR CONSULT: Aphasia. HISTORY OF PRESENT ILLNESS: Kalli Randolph is an 87-year-old woman with a history of mild cognitive impairment who came in from [facility] last evening where she lives for worsening mental status changes/confusion. On my evaluation, this afternoon, the patient is alone in the room and my attempts to get in touch with her son (Yemi) after the effect was unsuccessful though I did speak with his . According to Dr. Muñiz's history and physical, the family reported that yesterday morning, staff had to wake her up and help her get ready, which is unusual for her. She was having difficulty with her speech in terms of not being able to put coherent sentences together. She seemed to have memory difficulties as well. She was ambulating with her walker at her baseline without any issues. Apparently at some point last night, she was talking about her mother being in the room, who has . On Dr. Muñiz' s evaluation, she was concerned for an aphasia and a stroke workup has been initiated. Staff at [facility] initially spoke with Dr. Fuentes yesterday, who initially ordered a urinalysis, which was unremarkable and then directed the patient to come to the emergency room. There were no acute issues overnight. She has undergone carotid ultrasound as well as an MRI scan of the brain, which shows an infarction in the left thalamus , which is ischemic in nature. On my evaluation, the patient denies any pain, though she seems anxious and keeps talking about various topics unrelated to the issues at hand, and which often don't have much content. PAST MEDICAL HISTORY: 1. Cognitive impairment. 2. Macular degeneration. 3. History of cervical spondylosis with myelopathy. 4. Peripheral venous insufficiency. 5. Hyperlipidemia. 6. GERD. 7. Neuropathy. 8. Anxiety. 9. Hypertension. 10. Hypothyroidism. 11. Arthritis. HOME MEDICATIONS: 1. Milk of magnesia as needed. 2. Dulcolax as needed. 3. Vitamin D 800 units daily. 4. Vitamin B complex daily. 5. Tylenol 650 every 6 hours as needed. 6. Verapamil 240 mg daily. 7. Ramipril 5 mg daily. 8. Citrucel 500 mg daily. 9. Lansoprazole 30 mg daily. 10. MiraLAX daily. 11. PreserVision. 12. Levothyroxine 100 mcg on Saturday, Saturday, , Saturday and Saturday and 112 mcg on Mondays and Fridays. 13. Senna 1 tablet daily. 14. Debrox as needed. 15. Lexapro 20 mg daily. Of note, I do not see that the patient was on aspirin prior to her admission. ALLERGIES: BENZYL ALCOHOL, FLUOROURACIL, TAZAROTENE and CLAMS. FAMILY HISTORY: Not obtainable from the patient at this time but according to the record, there is no history of TIA or stroke in the family. SOCIAL HISTORY: She lives in assisted living at [facility]. She ambulates with walker at baseline. She quit smoking many years ago. She has occasional alcohol use. REVIEW OF SYSTEMS: Difficult to obtain secondary to the patient's aphasia, but she does deny pain. PHYSICAL EXAM: Vital Signs: Temperature 97.7, blood pressure 123/72, heart rate 79, oxygen saturation 97% on room air. On general examination, she is a pleasant, but mildly anxious appearing elderly woman. Her heart is in a regular rate and rhythm with a 3/6 systolic ejection murmur. Lungs were clear to auscultation bilaterally. I did not auscultate any carotid bruits. There is no extremity edema. Her skin is intact. On neurologic examination, she is fully awake and alert and is oriented to herself, but was not able to state where she is or the current month. She is unable to state her date of or her correct age. She was able to name some objects on the stroke card and was somewhat able to describe the cookie theft picture, though she made some paraphasic substitutions. She was able to read the phrases on the stroke card without any errors. She is able to follow commands relatively well, though she had some impersistence in following some commands such as to keep her eyes closed when testing sensation. There is no dysarthria. Her spontaneous speech is fluent but often lacks content. On cranial nerve exam, her pupils equal, round, and reactive from 3 to 2 mm. Versions are full without nystagmus. Her visual moore appear to be full to confrontation. Facial musculature is full and symmetric. Sensation is slightly diminished to pinprick in the right cheek. Her hearing is intact to voice. The palate elevates symmetrically and the tongue is midline. On motor examination, there is no pronator drift. There appears to be slight weakness approximately grade 5- in the left deltoid, but otherwise her strength is full. Sensation is diminished in the right upper extremity to pinprick compared to the left upper extremity, but equal in the lower extremities. Her reflexes are brisk throughout the upper and lower extremities and in particular with testing the ankle jerk, there is cross adduction. Her right toe appears to be upgoing. [id number] was without ataxia. I did not ambulate her at this time. DIAGNOSTIC STUDIES/LAB DATA: CBC is overall unremarkable. Her chemistry panel shows nonfasting glucose of 101, elevated BUN and creatinine ratio of 21.5 and a slightly low chloride of 99. Her fasting lipid profile this morning shows triglycerides of 97, total cholesterol of 253, LDL of 156 and HDL of 77.7. Her TSH is 4.65. Coagulation studies are normal. Urinalysis is normal. She was swabbed for flu and that was negative. Her carotid ultrasound showed no hemodynamically significant stenosis and mild plaque in the carotids bilaterally. Her CT of the brain showed no acute findings last evening. MRI of the brain was personally reviewed and shows a nonhemorrhagic infarction in the left thalamus consistent with the subacute infarct. There is also elevated T2 signal corresponding to this restricted diffusion in the left thalamus as well as mildly elevated signal on the periventricular and subcortical white matter with age expected atrophy. There is also moderate sinus mucosal inflammatory disease with an air fluid in the right maxillary sinus. Transthoracic echocardiogram showed mild concentric left ventricular hypertrophy with an ejection fraction of 55% to 60%. Left atrium mild to moderately dilated. Mild increase in right ventricular wall thickness. Mild to moderate aortic stenosis. It does not appear that a bubble study was performed. 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 Her exam is notable for the fluent aphasia as mentioned as well as some right-sided sensory deficit. This is all attributable to the thalamic infarction. Her carotid ultrasound looks fine but given that the thalamus is supplied by the posterior circulation, it would be worthwhile to get a CT angiogram of her head and neck to better determine whether there is any significant atherosclerosis or obvious occlusion, which could suggest that this was an embolic process and, in turn, might suggest a cardioembolic source versus small vessel etiology. She should be continued on telemetry at this point. Her echocardiogram does show some dilation of her left atrium, which could suggest that she is at higher risk for atrial fibrillation. Her LDL is elevated at 156 though I do note that her HDL is also high. She should be started on statin and I will get a baseline CK on her. She has been started on aspirin and should continue that. She is undergoing therapy evaluations including physical, occupational and speech therapy. Speech therapy will probably be the most important for her in terms of her recovery. Thank you for this consultation. I will follow the patient along during her hospitalization. [id number]/[facility] #: [id number] ISA[place]A
[2017-12-10] MEDS: Omeprazole CAP* 20 MG PO SCH (05:12)
[2017-12-10] MEDS: Levothyroxine TAB* 100 MCG TAB PO SCH (05:13)
[2017-12-10] MEDS: Heparin VIAL(*) 5000 UNITS/ML VIAL (FIVE THOUSAND) SUBCUT SCH ×3 (05:13→21:56)
[2017-12-10] MEDS: Verapamil SR TAB* 240 MG PO SCH (08:11)
[2017-12-10] MEDS: Ramipril CAP* 5 MG PO SCH (08:11)
[2017-12-10] MEDS: Polyethylene Glycol 3350* 17 GM PACKET PO SCH (08:11)
[2017-12-10] MEDS: Aspirin EC Low Dose* 81 MG TAB.EC PO SCH (08:11)
[2017-12-10] MEDS: Senna TAB PO SCH (08:11)
[2017-12-10] MEDS: CMCS Escitalopram (NF) 10 MG TAB PO SCH (21:48)
[2017-12-10] MEDS: Atorvastatin* 20 MG TAB PO SCH (21:48)
--- NOTE | 2017-12-11 04:20 | PN ---
NEUROLOGY PROGRESS NOTE: DATE OF FOLLOWUP: 12/10/17 HISTORY: No acute overnight events. The patient apparently did get a bit confused overnight and got a dose of lorazepam. On my evaluation, her granddaughter was at the bedside. She reports that she feels well today. She has undergone a CT angiogram, which did not show any significant occlusion or stenosis. I note that there was some mild plaque in the left vertebral artery and her left posterior cerebral artery arises from the posterior communicating artery, which is a normal variant. HOSPITAL MEDICATIONS: 1. Tylenol 650 q.4 hours p.r.n. 2. Maalox p.r.n. 3. Aspirin 81 mg daily. 4. Lipitor 20 mg daily. 5. Colace 100 mg b.i.d. p.r.n. 6. Escitalopram 20 mg at bedtime. 7. Heparin 5000 units q.8 hours. 8. Synthroid 100 mcg on Saturday, Saturday, Saturday, and 112 mcg on Saturday and Saturday. 9. Lorazepam 0.5 mg q.8 p.r.n. agitation. 10. Milk of magnesia p.r.n. 11. Omeprazole 20 mg daily. 12. Zofran 4 mg q.4 p.r.n. 13. MiraLAX daily. 14. Ramipril 5 mg daily. 15. Senna 1 tablet daily. 16. Verapamil 240 mg daily. PHYSICAL EXAM: Vital Signs: Temperature 98.5, blood pressure 113/67, heart rate 89, oxygen saturation 97% on room air. I note that her blood pressure this morning was 162/95, but this was an isolated value. On general examination , she is in no acute distress. There is a systolic ejection murmur auscultated. Her lungs are clear anteriorly. Her skin is intact. On neurologic examination, she continues to have mostly fluent aphasia, but at times she did have some word finding difficulty. She continues to get off topic when asked questions, but does not realize that she is doing so. She had difficulty describing the cookie theft picture and mentioned that the woman in the picture was in charge of the battalion. She similarly had difficulty with naming most objects on the stroke card, though was able to name a chair. She is able to read without any errors. Her visions are full without nystagmus. Her moore are full to threat. Facial sensation and musculature is full and symmetric. Her strength is full proximally and distally with no pronator drift. She does not appear to have any asymmetry in her sensation to pinprick today. Finger to nose is intact without ataxia. I did not watch her ambulate, but note that she is ambulating with a walker in the presence of someone. DIAGNOSTIC STUDIES/LAB DATA: Her CK returned at 76. Her CT angiogram was reviewed as described above. 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 CT angiogram was unremarkable. Her telemetry thus far has been unremarkable as well. At this point, I would continue her on her statin and aspirin and continue therapy evaluations with appropriate recommendations for rehab. I discussed with her granddaughter that she does have the capacity to recover from this, though her recovery may be incomplete and the degree of her recovery at this point is uncertain. However, in her favor is the fact that it does not sound like she had a significant dementia prior to this insult. Thank you for this consultation. [id number]/[facility] #: [id number] ISAURA
[2017-12-11] MEDS ORDERED: Levothyroxine TAB* 112 MCG TAB PO SCH (06:00)
[2017-12-11] MEDS: Omeprazole CAP* 20 MG PO SCH (06:39)
[2017-12-11] MEDS: Heparin VIAL(*) 5000 UNITS/ML VIAL (FIVE THOUSAND) SUBCUT SCH (06:39)
[2017-12-11] MEDS: Levothyroxine TAB* 100 MCG TAB PO SCH (06:43)
[2017-12-11] MEDS: Verapamil SR TAB* 240 MG PO SCH (08:37)
[2017-12-11] MEDS: Senna TAB PO SCH (08:37)
[2017-12-11] MEDS: Ramipril CAP* 5 MG PO SCH (08:37)
[2017-12-11] MEDS: Aspirin EC Low Dose* 81 MG TAB.EC PO SCH (08:37)
[2017-12-11] MEDS: Polyethylene Glycol 3350* 17 GM PACKET PO SCH (08:37)
--- NOTE | 2017-12-11 11:03 | DS ---
CC: [facility]; Dr. Greenwood * DATE OF ADMISSION: 12/08/2017. DATE OF DISCHARGE: 12/11/2017. DISCHARGE DIAGNOSES: 1. 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 2. History of anxiety. 3. Hypothyroidism. 4. History of gastroesophageal reflux disease. 5. History of constipation. 6. Hypertension. 7. History of macular degeneration. 8. History of cervical spondylosis. 9. Right bundle branch block. 10. Mild to moderate aortic stenosis. 11. Right bundle branch block. HISTORY: Kalli Traylor is an 87-year-old woman admitted with a CVA with fluent aphasia. Please see the dictated admission note for details of the present illness, past medical history, family history, social and personal history, review of systems and physical examination. LABORATORY DATA: CBC on December 08: WBC 9.3, H and H 13.1/39, MCV 92, PLT 357k. INR 0.86, PTT 34.4. Chemistry: Sodium 133, potassium 4.1, chloride 99, CO2 27, BUN and creatinine 20/0.93, glucose 101, lactic acid 0.8, the rest of her comprehensive metabolic panel was normal. Lipids: Cholesterol 253, HDL 77.7, LDL 156; triglycerides 97; TSH normal at 4.65; BNP normal at 71; CK normal at 73. Troponin normal. Urinalysis: Straw, clear, specific gravity 1.004, pH 7, dipstick is negative. Flu swab was negative. MRSA nasal swab was negative. EKG showed normal sinus rhythm, right bundle branch block, old inferior infarct. Of note, right bundle branch block had been seen previously in 2010. Transthoracic echocardiogram done 12/09/2017 showed normal LV function, mild LVH , mild to moderate aortic stenosis, trace tricuspid regurgitation. Left atrium was top normal in size. Chest x-ray showed no acute disease. Brain CT showed no acute disease. Brain MRI showed an infarct in the left thalamus with restricted diffusion, nonhemorrhagic. Chronic small vessel ischemia also noted. There is also moderate sinus mucosal inflammatory disease in the maxillary sinuses. Head CTA showed no significant thrombus. Dominant left vertebral artery was noted. Carotid Doppler's showed mild plaque, no significant stenosis. CONSULTATIONS: Neurology, Dr. Cassie Greenwood, felt the patient had a thalamic infarction, recommended a CT angiogram. Recommended statin therapy, aspirin, and physical, occupational and speech therapy. HOSPITAL COURSE: The patient was admitted. She was placed on Telemetry. She did not have atrial fibrillation. She did have occasional blocked PAC's, PVC's with couplets. Her speech improved slightly. She had physical therapy, speech therapy and occupational therapy evaluations. It was felt that she should continue these therapies. Her swallowing was fine. She was able to eat. Her work-up was done as noted above. Recommendations were made by Neurology. Dr. Greenwood felt that she had the capacity to recover from this, but may be incomplete. At the time of discharge, she is being discharged back to [facility], but will be at a higher level of care, care home versus assisted living for this period of time. At the time of discharge, she is to be on a regular diet. Activity is up with assistance. MEDICATIONS: 1. Levothyroxine 100 mcg daily 5 days a week. 2. Levothyroxine 112 mcg daily 2 days a week which is Mondays and Fridays. 3. Milk of Magnesia 30 cc p.o. daily prn constipation. 4. Dulcolax suppositories 10 mg per rectum daily prn constipation. 5. Vitamin D3 800 units p.o. daily. 6. Vitamin B complex one p.o. daily. 7. Ramipril 5 mg p.o. daily. 8. Verapamil 240 mg p.o. daily. 9. Citrucel 500 mg p.o. daily. 10. Lansoprazole 30 mg p.o. daily. 11. MiraLax 17 gm p.o. daily. 12. PreserVision one p.o. b.i.d. 13. Senna S 8.5/50 p.o. daily. 14. Acetaminophen 650 p.o. at bedtime. 15. Debrox 6.5% five drops in her ears daily 3 days per month. 16. Lexapro 20 mg p.o. daily. 17. Cetaphil cream b.i.d. to her skin. 18. Biofreeze 5% topical gel q.i.d. prn to her left thigh. 19. Aspirin 81 mg p.o. daily. 20. Atorvastatin 20 mg p.o. daily. 21. Acetaminophen 650 p.o. q.6 hours prn pain. She is to receive speech, occupational and physical therapy. She should have a lipid profile, a CPK and an ALT in one month. [id number]/[facility] #: [id number] [facility]ILITY[facility]areg
[2017-12-11 11:33] VITALS: BP 100/60
== END 2017-12-11 13:00 | DRG 65 ==
LOC: ED 16:58 → MEDTELE 23:00
PROVIDERS: ADMIT Pediatrics; ATTEND Internal Medicine Geriatric Medicine
DX: I63.9 Cerebral infarction, unspecified (principal); M47.12 Other spondylosis with myelopathy, cervical region; I45.10 Unspecified right bundle-branch block; I08.2 Rheumatic disorders of both aortic and tricuspid valves; R47.01 Aphasia; F41.9 Anxiety disorder, unspecified; E03.9 Hypothyroidism, unspecified; K21.9 Gastro-esophageal reflux disease without esophagitis; I10 Essential (primary) hypertension; H35.30 Unspecified macular degeneration; M47.9 Spondylosis, unspecified; I65.29 Occlusion and stenosis of unspecified carotid artery; I49.1 Atrial premature depolarization; I49.3 Ventricular premature depolarization; I87.2 Venous insufficiency (chronic) (peripheral); G60.9 Hereditary and idiopathic neuropathy, unspecified; M19.90 Unspecified osteoarthritis, unspecified site; G31.84 Mild cognitive impairment of uncertain or unknown etiology; Z66 Do not resuscitate; E78.5 Hyperlipidemia, unspecified; K59.00 Constipation, unspecified; R29.702 NIHSS score 2; Z79.82 Long term (current) use of aspirin; Z85.828 Personal history of other malignant neoplasm of skin; Z88.8 Allergy status to other drugs, medicaments and biological substances; Z82.3 Family history of stroke; Z87.891 Personal history of nicotine dependence; Z82.49 Family history of ischemic heart disease and other diseases of the circulatory system
CPT/HCPCS: 36415; 70450; 70496; 70498; 70551; 71045; 80053; 80061; 81003; 82550; 83605; 83735; 83880; 84443; 84484; 85025; 85610; 85730; 87502; 87641; 93005; 93306; 93880; A9270-GY; J1644; Q9967